=== PATIENT | male | born 1995 | race Caucasian/White ===

== ENCOUNTER 2016-10-11 20:14 | Emergency (ER) | payer BC ==
[~2016-10-11] VITALS: Ht 179.1 cm; Wt 91.4 kg
[2016-10-11 20:15] VITALS: TEMP 36.9; Ht 179.1 cm; Wt 91.4 kg
[2016-10-11 20:21] VITALS: O2SAT 99
[2016-10-11] MEDS ORDERED: MULT-506 PO (20:53)
--- NOTE | 2016-10-11 21:47 | EMERGENCY ROOM VISIT NOTE ---
History Report prepared by Titus: Sarah Dee Under the Supervision of: Dr. Sunday Mackenzie M.D. First contact with patient: 21:25 Chief Complaint: CHEST PAIN Stated Complaint: CHEST DISCOMFORT AROUND HEART AREA Nursing Triage Summary: patient presents with c/o chest pain and shortness of breath states symptoms began this morning states he can feel palpitations has had increased stress and anxiety due to graduation and relocation for a new job History of Present Illness The patient is a 20 year old male who presents to the Emergency Room with complaints of intermittent left-sided chest pains for the past couple of hours. He states that every few minutes he experiences a feeling of "muscle spasming" in his chest that lasts for a few seconds at a time. He states that it is not necessarily painful, but more uncomfortable feeling. He denies any modifying factors. The patient hiked [place] today. He was feeling okay during the hike but states that he does not typically hike. He had some left knee pain at that time but was not having any chest pain. The patient denies shortness of breath, cough, and any recent trauma or injury. He is a senior at [employer] and does report feeling very stressed and anxious lately as he gets closer to graduation. The patient rates his current pain as a 6/10. Source of History: patient Onset: a couple of hours ago Position: chest (left) Symptom Intensity: 6/10 Quality: other (spasming) Timing: intermittent Modifying Factors (Worsening): other (none) Modifying Factors (Relieving): other (none) Associated Symptoms: No SOB, No cough Review of Systems See HPI for pertinent positives & negatives. A total of 10 systems reviewed and were otherwise negative. Past Medical & Surgical Medical Problems: (1) No significant active problems Old medical records were reviewed. Nurse's notes were reviewed and I agree with. Denies history of diabetes, cardiac disease, pulmonary disease Family History No pertinent history stated. Social History Smoking Status: Never Smoker Marital Status: single Housing Status: lives with roommate Occupation Status: [employer] student Current/Historical Medications Scheduled Multivitamin (Multivitamin), 1 TAB PO DAILY Allergies Coded Allergies: No Known Allergies (Unverified , 10/11/16) Physical Exam Vital Signs Date Time Temp Pulse Resp B/P Pulse Ox O2 Delivery O2 Flow Rate FiO2 10/11/16 23:17 94 16 148/91 98 10/11/16 22:40 71 16 144/86 97 Room Air 10/11/16 21:10 95 20 134/87 98 Room Air 10/11/16 20:27 87 10/11/16 20:21 99 Room Air 10/11/16 20:21 99 Room Air 10/11/16 20:15 36.9 94 18 148/92 98 Room Air Physical Exam General: Well developed well nourished young male in no acute distress, breathing comfortably on room air. Normal speech HEENT: Normal cephalic atraumatic. Pupils are equal round and reactive to light. Extraocular movements are intact. Oropharynx is pink with moist mucous membranes. No swelling of the mouth lips or tongue. Neck: Supple with a midline trachea. No meningeal signs or stiffness, no JVD or bruits. No Stridor. Chest: Clear to auscultation bilaterally. No wheezes or rhonchi. No increased work of breathing. Heart: regular rate and rhythm. Abdomen: Soft nontender, nondistended without rebound guarding or rigidity. Extremities: No cyanosis clubbing or edema. No calf tenderness or assymetry Spine/Back. Non tender to palpation. No CVA tenderness Skin: Good turgor without rashes. Neurologic exam: Cranial nerves two through 12 are intact. Motor and sensation are intact and symmetrical throughout. Medical Decision & Procedures ER Provider Diagnostic Interpretation: A repeat ECG reveals a normal sinus rhythm at 73, early repolarization, no acute ischemia, and no significant change from previous. Radiology results as stated below per my review and radiologist interpretation: CHEST ONE VIEW PORTABLE CLINICAL HISTORY: CHEST PAIN dyspnea COMPARISON STUDY: No previous studies for comparison. FINDINGS: The bones soft tissues and hemidiaphragms are normal. The cardiomediastinal silhouette is normal. The lungs are clear. The pulmonary vasculature is normal. IMPRESSION: Negative chest. Electronically signed by: Chaz Martins M.D. 10/11/2016 9:51 PM Dictated Date/Time: 10/11/2016 9:51 PM Laboratory Results 10/11/16 20:30 Red Blood Count 5.17, Mean Corpuscular Volume 88.6, Mean Corpuscular Hemoglobin 31.5, Mean Corpuscular Hemoglobin Concent 35.6, Mean Platelet Volume 9.9, Neutrophils (%) (Auto) 48.1, Lymphocytes (%) (Auto) 36.2, Monocytes (%) (Auto) 7.6, Eosinophils (%) (Auto) 7.0, Basophils (%) (Auto) 1.0, Neutrophils # (Auto) 3.20, Lymphocytes # (Auto) 2.42, Monocytes # (Auto) 0.51, Eosinophils # (Auto) 0.47, Basophils # (Auto) 0.07 10/11/16 20:30 Test 10/11/16 20:30 White Blood Count 6.68 K/uL (4.8-10.8) Red Blood Count 5.17 M/uL (4.7-6.1) Hemoglobin 16.3 g/dL (14.0-18.0) Hematocrit 45.8 % (42-52) Mean Corpuscular Volume 88.6 fL (80-100) Mean Corpuscular Hemoglobin 31.5 pg (25-34) Mean Corpuscular Hemoglobin Concent 35.6 g/dl (32-36) Platelet Count 218 K/uL (130-400) Mean Platelet Volume 9.9 fL (7.4-10.4) Neutrophils (%) (Auto) 48.1 % Lymphocytes (%) (Auto) 36.2 % Monocytes (%) (Auto) 7.6 % Eosinophils (%) (Auto) 7.0 % Basophils (%) (Auto) 1.0 % Neutrophils # (Auto) 3.20 K/uL (1.4-6.5) Lymphocytes # (Auto) 2.42 K/uL (1.2-3.4) Monocytes # (Auto) 0.51 K/uL (0.11-0.59) Eosinophils # (Auto) 0.47 K/uL (0-0.5) Basophils # (Auto) 0.07 K/uL (0-0.2) RDW Standard Deviation 40.6 fL (36.4-46.3) RDW Coefficient of Variation 12.7 % (11.5-14.5) Immature Granulocyte % (Auto) 0.1 % Immature Granulocyte # (Auto) 0.01 K/uL (0.00-0.02) D-Dimer < 190 ug/L FEU (0-500) Anion Gap 7.0 mmol/L (3-11) Est Creatinine Clear Calc Drug Dose 121.8 ml/min Estimated GFR () 110.6 Estimated GFR (Non- 95.5 BUN/Creatinine Ratio 21.9 (10-20) Calcium Level 9.5 mg/dl (8.5-10.1) Total Bilirubin 0.7 mg/dl (0.2-1) Direct Bilirubin 0.1 mg/dl (0-0.2) Aspartate Amino Transf (AST/SGOT) 22 U/L (15-37) Alanine Aminotransferase (ALT/SGPT) 42 U/L (12-78) Alkaline Phosphatase 97 U/L (45-117) Troponin I < 0.015 ng/ml (0-0.045) Total Protein 8.2 gm/dl (6.4-8.2) Albumin 4.3 gm/dl (3.4-5.0) Lipase 96 U/L (73-393) Laboratory studies as stated above per my review. ECG Indication: chest pain Rate (beats per minute): 81 Rhythm: sinus with SA Findings: no acute ischemic change, other (poor baseline, early repolarization) ED Course 2124: Past medical records reviewed. The patient was evaluated in room B4B, and a complete history and physical examination were performed. 2231: I updated the patient at this time. 2305: I reassessed the patient at this time. He is feeling better and resting comfortably. I discussed the results and treatment plan with the patient. I answered all pertaining questions that he had. He expressed understanding and verbalized agreement. The patient will be discharged home. 2324: At the patient's request I spoke with his mother via telephone. I updated her on his results and answered all of her questions. Medical Decision Differential diagnoses includes acute coronary syndrome, arrhythmia, PE, pneumothorax, anxiety. Medication reconciliation : I have personally reviewed the patient's medication list. He denies that he is on any current medications Hypertension screening : His blood pressure is minimally elevated and is most likely related to stress/anxiety. I recommended that he get this rechecked when he follow-up with his regular doctor This patient comes in as described above. He was placed on a cardiac rehabilitation program director in room B3. He is here for treatment and evaluation of vague chest pain in the left chest. He looks well on exam. EKG does not show any definite acute ischemic changes or significant arrhythmia. A second EKG does not show any significant changes when compared to EKG #1. Troponin was negative. D-dimer is negative and in a pretest probability makes PE highly unlikely. Chest x-ray was unremarkable does not show any congestive heart failure, pneumonia or pneumothorax. He has no acute electrode or metabolic abnormalities. BUN was mildly elevated and could be hydration/prerenal. I think most likely is musculoskeletal or anxiety and noncardiac. I recommended he use ibuprofen and follow-up with his doctor in the next couple days for recheck. Return if: increasing pain, worsening of symptoms, shortness of breath, fever chills, any new problems concerns. The patient as well as his mother who I talked to on the phone are both happy with the plan he was discharged to home. Impression Primary Impression: Left sided chest pain Additional Impression: Anxiety Scribe Attestation The scribe's documentation has been prepared under my direction and personally reviewed by me in its entirety. I confirm that the note above accurately reflects all work, treatment, procedures, and medical decision making performed by me. Departure Information Dispostion Home / Self-Care Referrals No Doctor, Assigned (PCP) Forms HOME CARE DOCUMENTATION FORM, IMPORTANT VISIT INFORMATION Patient Instructions My [facility] Additional Instructions Rest. Drink plenty of fluids. Return if: Worsening of symptoms, shortness of breath, fever chills, any new problems or concerns. May use Ibuprofen 400 mg every 6 hours as needed for pain Follow-up with your doctor this week or next week for recheck. Problem Qualifiers
[2016-10-11 21:51] LABS: BASO ABS # 0.07 K/uL (0-0.2); COMPLETE YES; HEMATOCRIT 45.8 % (42-52); IG% 0.1 %; LYMPH % 36.2 %; LYMPH ABS # 2.42 K/uL (1.2-3.4); MEAN CELL VOLUME 88.6 fL (80-100); MEAN CORPUSCULAR HEMOGLOBIN 31.5 pg (25-34); MEAN CORPUSCULAR HGB CONC 35.6 g/dl (32-36); MEAN PLATELET VOLUME 9.9 fL (7.4-10.4); MONO % 7.6 %; NEUT % 48.1 %; PLATELET COUNT 218 K/uL (130-400); RED BLOOD COUNT 5.17 M/uL (4.7-6.1); WHITE BLOOD COUNT 6.68 K/uL (4.8-10.8)
--- NOTE | 2016-10-11 21:52 | DIAGNOSTIC IMAGING REPORT ---
CHEST ONE VIEW PORTABLE CLINICAL HISTORY: CHEST PAIN dyspnea COMPARISON STUDY: No previous studies for comparison. FINDINGS: The bones soft tissues and hemidiaphragms are normal. The cardiomediastinal silhouette is normal. The lungs are clear. The pulmonary vasculature is normal. IMPRESSION: Negative chest. Electronically signed by: Chaz Martins M.D. 10/11/2016 9:51 PM Dictated Date/Time: 10/11/2016 9:51 PM
[2016-10-11 22:00] LABS: ALT/SGPT 42 U/L (12-78); BLOOD UREA NITROGEN 24 mg/dl (7-18); BUN/CREATININE RATIO 21.9 (10-20); CALCIUM 9.5 mg/dl (8.5-10.1); CARBON DIOXIDE 30 mmol/L (21-32); CHLORIDE 103 mmol/L (98-107); GLUCOSE 92 mg/dl (70-99); POTASSIUM 3.6 mmol/L (3.5-5.1); SODIUM 140 mmol/L (136-145)
[2016-10-11 22:05] LABS: ALKALINE PHOSPHATASE 97 U/L (45-117); AST/SGOT 22 U/L (15-37)
[2016-10-11 23:17] VITALS: BP 148/91; PULSE 94; O2SAT 98
== END 2016-10-11 23:15 | disposition home or self-care (01) ==
LOC: C.EDB 20:16
DX: R07.89 Other chest pain (principal); F41.9 Anxiety disorder, unspecified